=== PATIENT | female | born 1975 | race African-American/Black ===

== ENCOUNTER 2024-09-19 21:07 | Emergency (ER) | payer OTHER ==
[~2024-09-19] VITALS: Ht 182.9 cm; Wt 91.0 kg
[2024-09-19 21:26] VITALS: TEMP 98.4; O2SAT 99
[2024-09-19 23:10] LABS: CARBON DIOXIDE 25 mEq/L (21-32); CHLORIDE 107 mEq/L (98-107); POTASSIUM 3.1 mEq/L (3.5-5.1); SODIUM 138 mEq/L (136-145)
[2024-09-19 23:11] LABS: CALCIUM 10.4 mg/dL (8.7-10.4)
[2024-09-19 23:16] LABS: CREATININE 0.9 mg/dL (0.6-1.0); GLUCOSE 101 mg/dL (70-105); UREA NITROGEN BLOOD 6 mg/dL (9-23)
[2024-09-19 23:17] LABS: ALBUMIN 4.4 g/dL (3.2-4.8)
[2024-09-19 23:18] LABS: ALANINE AMINOTRANSFERASE 11 IU/L (10-49); ASPARTATE AMINOTRANSFERASE 16 IU/L (<34); BILIRUBIN TOTAL 0.4 mg/dL (0.1-1.0); PROTEIN TOTAL 7.3 g/dL (6.0-8.3)
[2024-09-19 23:23] LABS: HEMATOCRIT. 37.5 % (36.0-48.0); HEMOGLOBIN. 12.5 g/dL (12.0-16.0); MEAN CORPUSCULAR HGB CONC 33.4 g/dL (31.0-37.0); MEAN CORPUSCULAR VOLUME 86.9 fL (81.0-99.0); MEAN PLATELET VOLUME 8.4 fl (7.4-10.4); PLATELET 284 x1000/uL (130-400); RED BLOOD CELL COUNT 4.31 mill/uL (4.2-5.4); RED CELL DISTRIBUTION WIDTH 15.5 % (11.6-14.6); WHITE BLOOD COUNT 6.8 x1000/uL (4.5-11.0)
[2024-09-20 00:05] LABS: DIFFERENTIAL COMMENT 1
[2024-09-20 00:37] LABS: HCG SCREEN NEGATIVE
[2024-09-20 01:41] VITALS: BP 170/110; PULSE 80; RESP 18
[2024-09-20] MEDS: METOCLOPRAMIDE HCL 10MG/2ML VIAL IM ONE (01:41)
[2024-09-20] MEDS: KETOROLAC 30MG/ML VIAL IM ONE (01:41)
[2024-09-20] MEDS: METOCLOPRAMIDE HCL 10MG/2ML VIAL IM NR (01:42)
[2024-09-20 02:10] LABS: ANISOCYTOSIS 1+
[2024-09-20 02:11] LABS: PLATELET ESTIMATE NORMAL
[2024-09-20] MEDS ORDERED: IBUP-2029 MT (02:11)
[2024-09-20] MEDS ORDERED: POTASSIUM CHLORIDE 20MEQ/PACKET PO ONE (02:15)
== END 2024-09-20 07:38 | disposition home or self-care (01) ==
LOC: ER 21:07
DX: R51.9 Headache, unspecified (principal); E87.6 Hypokalemia; I10 Essential (primary) hypertension
CPT/HCPCS: 99285; 70450; 80053; 84703; 85025; 36415; 96372; J1885; J2765